=== PATIENT | female | born 1950 | race Native Hawaiian/Other Pacific Islander ===

== ENCOUNTER 2016-02-12 09:37 | Outpatient (CLI) | payer OTHER | END 2016-02-12 10:37 | disposition home or self-care (01) | LOC: RAD 09:37 | DX: M54.2 Cervicalgia (principal) ==

== ENCOUNTER 2016-02-28 09:40 | Outpatient (CLI) | payer OTHER | END 2016-02-28 20:48 | disposition home or self-care (01) | LOC: MAMMO 09:40 | DX: Z12.31 Encounter for screening mammogram for malignant neoplasm of breast (principal) | CPT/HCPCS: G0202-TC ==

== ENCOUNTER 2016-03-18 11:16 | Outpatient (CLI) | payer OTHER ==
[2016-03-18 11:51] LABS: POTASSIUM 2.6 mmol/L (3.6-5.2)
[2016-03-18 13:03] LABS: PLATELET COUNT 206 K/uL (152-353)
== END 2016-03-18 19:09 | disposition home or self-care (01) ==
LOC: LABW 11:16
PROVIDERS: Nurse Practitioner
DX: R10.84 Generalized abdominal pain (principal); R19.7 Diarrhea, unspecified
CPT/HCPCS: 36415; 80053; 85027; 85651; 87045; 87205; 87328; 87329; 87493; 87798; 87899

== ENCOUNTER 2016-03-24 09:05 | Outpatient (CLI) | payer OTHER ==
[2016-03-24 09:38] LABS: POTASSIUM 3.4 mmol/L (3.6-5.2)
== END 2016-03-24 10:05 | disposition home or self-care (01) ==
LOC: LABW 09:05
PROVIDERS: Physical Medicine & Rehabilitation Pain Medicine
DX: M54.5 Low back pain (principal); M54.16 Radiculopathy, lumbar region
CPT/HCPCS: 36415; 80053

== ENCOUNTER 2016-03-27 10:30 | Outpatient (CLI) | payer OTHER | END 2016-03-27 19:29 | disposition home or self-care (01) | LOC: CT 10:30 | DX: R10.32 Left lower quadrant pain (principal) ==

== ENCOUNTER 2016-05-26 08:52 | Emergency (ER) | payer OTHER ==
[~2016-05-26] VITALS: Ht 154.9 cm; Wt 65.8 kg
[2016-05-26] MEDS ORDERED: DOCU100C10 PO (09:12)
[2016-05-26] MEDS ORDERED: QUETIAPINE200 MG OR (09:12)
[2016-05-26] MEDS ORDERED: FLONASE AL50 MCG/ACT (09:13)
[2016-05-26] MEDS ORDERED: FLUTMIS14 INH (09:13)
[2016-05-26] MEDS ORDERED: VENLAFAXINE150 M1 PO (09:13)
[2016-05-26] MEDS ORDERED: LISINOP/HCTZ1 TA2 PO (09:13)
[2016-05-26] MEDS ORDERED: PANT40IN IV (09:14)
[2016-05-26] MEDS ORDERED: [UNRECOGNIZED DRUG - OTHER] OR (09:14)
[2016-05-26] MEDS ORDERED: FISH OIL600 MG OR (09:17)
[2016-05-26 09:48] LABS: PLATELET COUNT 265 K/uL (152-353)
[2016-05-26 10:40] LABS: POTASSIUM 3.2 mmol/L (3.6-5.2)
[2016-05-26 12:55] VITALS: BP 126/65; TEMP 97.7
== END 2016-05-26 12:55 | disposition home or self-care (01) ==
LOC: ED 08:52
DX: R06.4 Hyperventilation (principal); F41.0 Panic disorder [episodic paroxysmal anxiety]
CPT/HCPCS: 36415; 36600; 80053; 82805; 85027; 96374; 99284; J2060

== ENCOUNTER 2016-07-12 09:06 | Emergency (ER) | payer OTHER ==
[~2016-07-12] VITALS: Ht 154.9 cm; Wt 64.9 kg
[~2016-07-12 09:06] MED LIST: DOCU100C10 PO; FISH OIL600 MG OR; FLONASE AL50 MCG/ACT; FLUTMIS14 INH; LISINOP/HCTZ1 TA2 PO; PANT40IN IV; QUETIAPINE200 MG OR; VENLAFAXINE150 M1 PO; [UNRECOGNIZED DRUG - OTHER] OR
[2016-07-12 09:53] VITALS: BP 160/75; TEMP 98.3
== END 2016-07-12 11:19 | disposition home or self-care (01) ==
LOC: ED 09:06
DX: S51.812A Laceration without foreign body of left forearm, initial encounter (principal); S51.811A Laceration without foreign body of right forearm, initial encounter
CPT/HCPCS: 99282

== ENCOUNTER 2016-12-02 14:20 | Emergency (ER) | payer OTHER ==
[~2016-12-02] VITALS: Ht 154.9 cm; Wt 69.4 kg
[~2016-12-02 14:20] MED LIST changes: +FENT25DI TD; +LIPITOR10 MG PO; +LORA1TAB17 PO; +METO50TA63 PO; +PERCOCET1 TA1 PO
[2016-12-02 14:30] VITALS: BP 154/77; TEMP 97.6
[2016-12-02 15:26] LABS: PLATELET COUNT 211 K/uL (152-353)
[2016-12-02 15:33] LABS: POTASSIUM 3.9 mmol/L (3.6-5.2)
[2016-12-02] MEDS ORDERED: ASPIRIN 81 LOW81 MG PO (17:23)
[2016-12-02] MEDS ORDERED: SEROQUEL300 MG OR (17:23)
== END 2016-12-02 20:17 | disposition other institution (70) ==
LOC: ED 14:20
PROVIDERS: Emergency Medicine
DX: F32.89 Other specified depressive episodes (principal); R45.851 Suicidal ideations
CPT/HCPCS: 36415; 80053; 80307; 80320; 80329; 81000; 85027; 93005; 99285; G0479

== ENCOUNTER 2017-12-27 09:02 | Emergency (ER) | payer OTHER ==
[~2017-12-27] VITALS: Ht 154.9 cm; Wt 68.5 kg
[~2017-12-27 09:02] MED LIST changes: +ASPIRIN 81 LOW81 MG PO; +SEROQUEL300 MG OR
[2017-12-27 09:08] VITALS: TEMP 97.9
[2017-12-27] MEDS ORDERED: DEXILANT30 MG PO (09:28)
[2017-12-27] MEDS ORDERED: ALLO100T22 PO (09:29)
[2017-12-27] MEDS ORDERED: BUSPIRONE30 MG PO (09:29)
[2017-12-27] MEDS ORDERED: DOXEPIN HCL50 MG PO (09:30)
[2017-12-27] MEDS ORDERED: SINGULAIR4 MG PO (09:31)
[2017-12-27] MEDS ORDERED: MONT10TA PO (09:32)
[2017-12-27 09:39] LABS: PLATELET COUNT 254 K/uL (152-353)
[2017-12-27 09:54] LABS: POTASSIUM 4.7 mmol/L (3.6-5.2)
[2017-12-27 13:45] VITALS: BP 128/66
== END 2017-12-27 14:40 | disposition other institution (70) ==
LOC: ED 09:02
DX: R44.2 Other hallucinations (principal); R45.851 Suicidal ideations; F22 Delusional disorders; I48.92 Unspecified atrial flutter
CPT/HCPCS: 36415; 80053; 80307; 80320; 80329; 81000; 84484; 85027; 93005; 96372; 99285; J3486

== ENCOUNTER 2018-01-07 09:21 | Outpatient (CLI) | payer OTHER ==
[~2018-01-07 09:21] MED LIST changes: +ALLO100T22 PO; +BUSPIRONE30 MG PO; +DEXILANT30 MG PO; +DOXEPIN HCL50 MG PO; +MONT10TA PO; +SINGULAIR4 MG PO
== END 2018-01-07 20:32 | disposition home or self-care (01) ==
LOC: MAMMO 09:21
DX: Z12.31 Encounter for screening mammogram for malignant neoplasm of breast (principal)